=== PATIENT | female | born 1995 | race Hispanic/Latino ===

== ENCOUNTER 2019-02-27 08:58 | Emergency (ER) | payer SELFPAY | END 2019-02-27 09:30 | disposition home or self-care (01) | LOC: EDBD 08:58 → EDH 08:58 | DX: J11.1 Influenza due to unidentified influenza virus with other respiratory manifestations (principal) ==

== ENCOUNTER 2019-05-05 09:34 | Emergency (ER) | payer OTHER, SELFPAY ==
[2019-05-05 10:27] LABS: APPEARANCE,URINE CLEAR (CLEAR); BILIRUBIN,URINE NEGATIVE (NEGATIVE); COLOR,URINE YELLOW (YELLOW); GLUCOSE, URINE (UA) NEGATIVE (NEGATIVE); KETONES,URINE NEGATIVE (NEGATIVE); LEUKOCYTE ESTERASE ,URINE NEGATIVE (NEGATIVE); NITRATE,URINE NEGATIVE (NEGATIVE); OCCULT BLOOD,URINE TRACE-INTACT (NEGATIVE); PROTEIN,URINE NEGATIVE (NEGATIVE); UROBILINOGEN,URINE 0.2 mg/dL (0.2-1.0)
[2019-05-05 10:31] LABS: HCG,QUAL RESULT NEGATIVE (NEGATIVE)
[2019-05-05] MEDS ORDERED: KETOROLAC TROMETHAMINE 30MG/ML ONE (10:49)
[2019-05-05 10:58] LABS: BACTERIA,URINE Rare /HPF (None Seen); RBC,URINE 0-1 /HPF (0-1); SQUAMOUS EPITHELIAL CELL,UR Few /HPF (0-2); WBC,URINE 0-1 /HPF (0-1)
== END 2019-05-05 10:56 | disposition home or self-care (01) ==
LOC: EDH 09:34
DX: R10.2 Pelvic and perineal pain (principal)
CPT/HCPCS: 81001; 81025; 99283; J1885

== ENCOUNTER 2024-11-02 03:48 | Emergency (ER) | payer BC ==
[~2024-11-02] VITALS: Ht 157.5 cm; Wt 85.7 kg
--- NOTE | 2024-11-02 04:08 | NUR ---
PT CARE ASSUMED AT THIS TIME
--- NOTE | 2024-11-02 05:03 | EKG ---
[facility] Test Date: 2024-11-02 Test Time: 04:58:14 Pat Name: KRIS SLOAN Department: [facility] Room: Gender: F Director [employer]: [id number] : 1995 Requested By: EUGENIA AUGUSTE Order Number: [id number] Reading MD: Lisa Leslie Measurements Intervals Jay Em Rate: 77 P: 46 WI: 150 QRS: 70 QRSD: 83 T: 37 QT: 365 QTc: 414 Interpretive Statements Sinus rhythm Low voltage, precordial leads No previous ECG available for comparison Electronically Signed On 11-02-2024 12:33:36 CDT by Lisa Leslie Please click the below link to view image of tracing.
[2024-11-02] MEDS: LACTATED RINGERS 1000ML IV STA (05:13)
--- NOTE | 2024-11-02 05:16 | ERN ---
General Chief Complaint: Other Problems Stated Complaint: FATIGUE, "HEART PROBLEMS", RESTLESS Time Seen by MD: 04:48 Source: patient History of Present Illness Initial Comments 29-year-old female with a history of seizures and visual Snow syndrome. She comes in with a feeling of looseness in her chest and being restless. She is concerned that these symptoms maybe a harming her of a seizure as she has had these symptoms before and they led to a seizure. Currently she is not taking any seizure medications as her last seizure was when she was a child. Allergies: Coded Allergies: No Known Allergies (Unverified Allergy, Unknown, 05/05/19) Past Medical History Past Medical History: High Cholesterol, Hypertension, Seizure Medical History Other: PCOS Visual SNOW Syndrome Past Surgical History: None Female( History) LMP: Oct 28, 2024 Constitutional: (-) chills, (-) diaphoresis, (-) fever, (-) malaise, (-) weakness, (-) other documentation EENTM: (-) eye pain, (-) blurred vision, (-) tearing, (-) double vision, (-) ear pain, (-) ear discharge, (-) nose pain, (-) nose congestion, (-) throat pain, (-) Throat swelling, (-) mouth pain, (-) tooth pain, (-) mouth swelling, (-) other documentation Respiratory: (-) cough, (-) orthopnea, (-) short of breath, (-) stridor, (-) wheezing, (-) other documentation Cardiovascular: (-) chest pain, (-) edema, (-) palpitations, (-) syncope, (-) dyspnea on exertion, (-) other documentation Gastrointestinal/Abdominal: (-) nausea, (-) vomiting, (-) diarrhea, (-) abdominal pain, (-) abdominal distention, (-) constipation, (-) rectal bleeding, (-) dark stool/melena, (-) other documentation Genitourinary: (-) vaginal discharge, (-) vaginal bleeding, (-) dysuria, (-) frequency, (-) hematuria, (-) pain, (-) other documentation Musculoskeletal: (-) Neck pain, (-) back pain, (-) Flank Pain, (-) joint pain, (-) joint swelling, (-) muscle pain, (-) muscle stiffness, (-) gout, (-) other documentation Physical Exam General Appearance: (+) no apparent distress Orientation: (+) alert, (+) oriented x 3 Head/Face Trauma: No Eye: bilateral eye normal inspection, bilateral eye PERRL, bilateral eye EOMI Ear, Nose, Throat: (+) hearing grossly normal, (+) normal ENT inspection, (+) moist mucous membraine Neck: (+) normal inspection, (+) supple, (+) full range of motion Respiratory: (+) chest non-tender, (+) lungs clear, (+) well ventilated Heart: (+) regular, (+) no gallop Vascular: (+) no edema, (+) normal peripheral pulse Gastrointestinal: (+) soft, (+) non-tender, (+) bowel sound present Results Laboratory and Microbiology Lab and Micro Result Laboratory Tests Test 11/02/24 04:02 11/02/24 05:10 Urine Color LIGHT-YELLOW (YELLOW) Urine Appearance CLEAR (CLEAR) Urine pH 6.0 (5.0-8.0) Urine Specific [place] 1.024 (1.001-1.031) Urine Protein NEGATIVE mg/dL (NEGATIVE) Urine Glucose (UA) NEGATIVE mg/dL (NEGATIVE) Urine Ketones NEGATIVE mg/dL (NEGATIVE) Urine Occult Blood NEGATIVE (NEGATIVE) Urine Nitrate NEGATIVE (NEGATIVE) Urine Bilirubin NEGATIVE mg/dL (NEGATIVE) Urine Urobilinogen 0.2 mg/dL (0.2-1.0) Urine Leukocyte Esterase NEGATIVE Karla/uL Urine HCG, Qualitative NEGATIVE (NEGATIVE) White Blood Count 10.3 K/uL (4.8-10.8) Red Blood Count 4.77 MIL/uL (4.00-5.50) Hemoglobin 14.3 g/dL (12.0-16.0) Hematocrit 42.1 % (36-48) Mean Corpuscular Volume 88.3 fL (79-99) Mean Corpuscular Hemoglobin 30.0 pg (27.0-33.0) Mean Corpuscular Hemoglobin Concent 34.0 g/dL (32.0-36.0) Red Cell Distribution Width 12.6 % (11.0-15.5) Platelet Count 398 K/uL (130-400) Mean Platelet Volume 8.6 fL (7.5-10.5) Immature Granulocyte % (Auto) 0.5 % (0-1) Neutrophils (%) (Auto) 57.3 % (40.0-77.0) Lymphocytes (%) (Auto) 35.0 % (21.0-51.0) Monocytes (%) (Auto) 6.2 % (3.0-13.0) Eosinophils (%) (Auto) 0.6 % (0.0-8.0) Basophils (%) (Auto) 0.4 % (0.0-5.0) Neutrophils # (Auto) 5.9 K/uL (1.8-7.7) Lymphocytes # (Auto) 3.6 K/uL (1.0-4.8) Monocytes # (Auto) 0.6 K/uL (0.1-1.0) Eosinophils # (Auto) 0.06 K/uL (0.00-0.70) Basophils # (Auto) 0.04 K/uL (0.00-0.20) Absolute Immature Granulocyte (auto 0.05 K/uL (0-1) Nucleated Red Blood Cells 0.0 % (0.0-0.19) Sodium Level 137 mmol/L (136-145) Potassium Level 3.5 mmol/L (3.5-5.1) Chloride Level 101 mmol/L (101-111) Carbon Dioxide Level 32 mmol/L (21-32) Blood Urea Nitrogen 11 mg/dL (7-18) Creatinine 0.6 mg/dL (0.5-1.0) Glomerular Filtration Rate Calc 125 mL/min (>90) Random Glucose 117 mg/dL (70-105) H Lactic Acid Level 1.4 mmol/L (0.8-2.5) Total Calcium 9.9 mg/dL (8.5-10.1) Troponin I High Sensitivity < 4 ng/L (4-50) L B-Type Natriuretic Peptide 7 pg/mL (0-100) MDM MDM: Differential diagnosis: Patient maybe having an aura prior to a seizure. Patient maybe dehydrated. Could also be GERD anxiety electrolyte abnormalities dehydration Rationale: Tests considered and ordered secondary to shared decision making include: Previous outside records reviewed: Old ER visits. Risk of complication and/or morbidity or mortality of patient management: None Medications-Per medication reconciliation Need for hospitalization: Patient does meet criteria for hospitalization. Need for emergency major/minor surgery: No There are no social concerns with this patient. Prescription drug management Prescriptions will include symptomatic care Patient's prior external medical records from other ER visits were reviewed by ivan cast as indicated. Prior testing and results from previous visits were reviewed. Prior tests were taken into account with medical decision making and resource utilization, independent historian/historians were used to obtain complete medical history. I independently interpreted the test that were performed, results were reviewed by me and considered findings on radiology if ordered. Patient's laboratory studies are normal patient's chemistry panel patient's CBC patient's urine are all normal. Patient has a funny feeling when she lies down and can not breathe comfortably. I obtained a chest x-ray and it was normal. I discussed these findings with the patient and she feels comfortable going home. She will follow up with her primary care physician and her neurologist ED Course Orders Procedure Category Date Status Time 12 Lead Ekg Tracing- EKG 11/02/24 Complete Technical 04:48 B-Type Natriuretic LAB 11/02/24 Complete Peptide 04:48 Basic Metabolic Panel LAB 11/02/24 Complete 04:48 Cbc With Differential LAB 11/02/24 Complete 04:48 Lactic Acid LAB 11/02/24 Complete 04:48 Troponin I High LAB 11/02/24 Complete Sensitivity 04:48 Urinalysis Profile LAB 11/02/24 Complete 04:48 ,Urine Test LAB 11/02/24 Complete 04:48 Lactated Ringers PHA 11/02/24 Complete 1000ml (Lactated 04:48 Hydralazine 20mg Inj PHA 11/02/24 Complete (Apresoline 20mg In 06:30 Chest 1vw RAD 11/02/24 Logged 06:38 Current Medications Medications (Trade) Dose Ordered Sig/Suman Route PRN Reason Start Time Stop Time Status Last Admin Dose Admin Hydralazine HCl (APRESOLine 20MG INJ) 20 mg ONCE ONCE IV 11/02/24 06:30 11/02/24 06:32 DC Lactated Ringer's (Lactated Ringers 1000ml) 1,000 ml BOLUS STAT IV 11/02/24 04:48 11/02/24 04:51 DC 11/02/24 05:13 Vital Signs Date Time Temp Pulse Resp B/P (MAP) Pulse Ox O2 Delivery O2 Flow Rate FiO2 11/02/24 06:27 80 14 145/89 98 Room Air* 0 21 11/02/24 06:20 70 16 166/99 99 Room Air* 0 21 11/02/24 04:08 98.6 79 17 137/91 99 Room Air* 0 11/02/24 03:54 98.1 78 16 133/90 98 Room Air 0 DX & DISP Disposition: Discharge Departure Impression: Primary Impression: Chest pressure Condition: Stable Additional Instructions: I can not find an explanation for your symptoms. Our workup is negative. Your electrolytes are fine her chemistry panel is fine your urine analysis is fine your chest x-ray is fine. I recommend you follow-up with your primary care physician and your neurologist. Referrals: CHETAN MOHAN M.D. (PCP) EUGENIA AUGUSTE MD Nov 02, 2024 05:16
[2024-11-02 05:17] LABS: IMMATURE GRANULOCYTE ABSOLUTE 0.05 K/uL (0-1); NUCLEATED RED BLOOD CELLS 0.0 % (0.0-0.19); PLATELET COUNT (AUTO) 398 K/uL (130-400); RED BLOOD CELL COUNT(AUTO) 4.77 MIL/uL (4.00-5.50); RED CELL DISTRIBUTION WIDTH 12.6 % (11.0-15.5); WHITE BLOOD COUNT (AUTO) 10.3 K/uL (4.8-10.8)
[2024-11-02 05:18] LABS: APPEARANCE,URINE CLEAR (CLEAR); GLUCOSE, URINE (UA) NEGATIVE (NEGATIVE); LEUKOCYTE ESTERASE ,URINE NEGATIVE Leu/uL (NEGATIVE); NITRATE,URINE NEGATIVE (NEGATIVE); OCCULT BLOOD,URINE NEGATIVE (NEGATIVE)
[2024-11-02 05:19] LABS: ADD UA MICROSCOPIC NO
[2024-11-02 05:20] LABS: HCG,QUALITATIVE URINE NEGATIVE (NEGATIVE)
--- NOTE | 2024-11-02 05:45 | NUR ---
PT REPORTS FEELING LIKE "THE IV FLUIDS ARE GOING TOO FAST AND IS SOB". ED RN ASKED PT IF SHE'D LIKE THE FLUIDS TO BE TURNED OFF. PT STATED "NO". ED RN ASKED PT IF SHE WANTED THE IV FLUIDS SLOWER. PT REPORTS "YES". ED RN SLOWED DOWN THE FLUIDS. PT SHOWS NO SIGNS OF DISTRESS. 99% ON ROOM AIR, 85 HEART RATE, AND 16 RESPIRATORY RATE. EVEN AND UNLABORED BREATHING NOTED. ED MD ALVAREZ MADE AWARE.
[2024-11-02 06:00] LABS: CREATININE 0.6 mg/dL (0.5-1.0); GLOMERULAR FILTR. RATE CALC 125.0 mL/min (>90); GLUCOSE,RANDOM 117.0 mg/dL (70-105); SODIUM SERUM 137.0 mmol/L (136-145); UREA NITROGEN, BLOOD 11.0 mg/dL (7-18)
--- NOTE | 2024-11-02 06:30 | NUR ---
ED RN REASSESSED BLOOD PRESSURE PRIOR TO ADMINISTRATION OF MEDICATION ORDER OF HYDRALAZINE 20 MG IV. ED MD ALVAREZ MADE AWARE OF BP. MEDICATION IS TO BE HELD AND NOT ADMINISTERED. REFER TO VITAL SIGN DOCUMENTATION.
[2024-11-02 07:23] VITALS: BP 153/97; PULSE 78; RESP 14; TEMP 98.6; O2SAT 98
--- NOTE | 2024-11-03 00:18 | HMCIMG ---
EXAM: CR Chest, 1 views. CLINICAL HISTORY: Cough. COMPARISON: None provided. FINDINGS: The lungs show no infiltrate or other acute findings. No pleural effusion or pneumothorax. The cardiomediastinal silhouette is within normal limits. No acute osseous abnormality. IMPRESSION: 1. No acute cardiopulmonary pathology is evident. /[place]
== END 2024-11-02 07:29 | disposition home or self-care (01) ==
LOC: EDH 03:48
DX: R07.89 Other chest pain (principal); E78.00 Pure hypercholesterolemia, unspecified; I10 Essential (primary) hypertension
CPT/HCPCS: 99284; 96360; 71045; 96361; 84484; 80048; 83880; 85025; 83605; 81003; 81025; 36415; 93005; J7120